=== PATIENT | female | born 1965 | race Caucasian/White ===

== ENCOUNTER → 2019-12-15 | Outpatient (CLI) | payer MEDICARE, MEDICAID | LOC: COL.RAD 12-14 14:45 | DX: G43.709 Chronic migraine without aura, not intractable, without status migrainosus (principal) ==

== ENCOUNTER 2021-04-18 18:00 | Emergency (ER) | payer MEDICARE, MEDICAID ==
[~2021-04-18] VITALS: Ht 167.6 cm; Wt 59.1 kg
[2021-04-18] MEDS ORDERED: PERCOCET 325 MG1 TA2 PO (20:34)
[2021-04-18 20:50] VITALS: BP 138/64; PULSE 70; TEMP 98.1
== END 2021-04-18 20:51 | disposition home or self-care (01) ==
LOC: COL.ER 18:00
DX: S13.9XXA Sprain of joints and ligaments of unspecified parts of neck, initial encounter (principal); S09.90XA Unspecified injury of head, initial encounter; W11.XXXA Fall on and from ladder, initial encounter
CPT/HCPCS: J1885; J2270

== ENCOUNTER 2022-04-11 14:32 | Emergency (ER) | payer MEDICARE, MEDICAID ==
[~2022-04-11] VITALS: Ht 170.2 cm; Wt 54.5 kg
[~2022-04-11 14:32] MED LIST: PERCOCET 325 MG1 TA2 PO
[2022-04-11 14:54] VITALS: TEMP 97.5
[2022-04-11] MEDS ORDERED: PERCOCET 325 MG1 TA2 PO (16:45)
[2022-04-11 17:08] VITALS: BP 104/76; PULSE 61
== END 2022-04-11 17:08 | disposition home or self-care (01) ==
LOC: COL.ER 14:32
DX: M25.562 Pain in left knee (principal)